=== PATIENT | male | born 1975 | race Two or more races ===

== ENCOUNTER 2025-02-25 03:51 | Inpatient (IN) | payer MEDICAID, OTHER ==
[~2025-02-25] VITALS: Ht 170.2 cm; Wt 97.0 kg
--- NOTE | 2025-02-25 04:22 | ED.PDOC ---
History of Present Illness HPI Comments 49 y/o obese, Estonian speaking M presents daughter with c/c of diffused abdominal pain. Patient endorses on sudden onset of worsening pain after eating pork at 0000, this morning. No modifying factors. No endorsed recent prior ailments, sick contact, travel, injuries, or pertinent medical, surgical, or family history. Social history of occasional alcohol use. Denial of urinary symptoms, nausea, vomiting, diarrhea, constipation, or further associated symptoms. Chief Complaint: Abdominal Pain Time Seen by MD: 04:05 Reviewed Notes: Nurses Notes, Medications, Allergies Information Source: Patient Mode of Arrival: Ambulatory Severity: Moderate Timing: Hours Duration: Since onset Prehospital treatment: None Past Medical History PAST MEDICAL HISTORY: Denies Surgical History: Denies all surgeries Family History Family History: Reviewed,noncontributory to illness, No family hx of Cancer, No family hx of DM, No family hx of Heart kayy, No family hx of HTN, No family hx ofKidney kayy, No family hx of Liver kayy, No family hx of Lung kayy, No family hx of Stroke Social History Smoker: Non-Smoker Alcohol: Occasionally Drugs: Denies Drug Use Lives In: Home All Other Systems: Reviewed and Negative (Comprehensive systems review obtained and negative except for what is stated in the HPI.) Physical Exam General Appearance: Moderate Distress HEENT: Normal ENT Inspection, Pharynx Normal, TMs Normal Neck: Full Range of Motion, Non-Tender, Normal, Normal Inspection Respiratory: Chest Non-Tender, Lungs Clear, No Accessory Muscle Use, No Respiratory Distress, Normal Breath Sounds Cardiovascular: No Edema, No JVD, No Murmur, No Gallop, Normal Peripheral Pulses, Regular Rate/Rhythm Breast Exam: Deferred Gastrointestinal: Diffuse Genitalia: Deferred Pelvic: Deferred Rectal: Deferred Extremities: No calf tenderness, Normal capillary refill, Normal inspection, Normal range of motion, Non-tender, No pedal edema Musculoskeletal : Apperance: Normal Neurologic: Alert, fish roe processor II-XII nml as Tested, No Motor Deficits, Normal Affect, Normal Mood, No Sensory Deficits Cerebellar Function: Normal Reflexes: Normal Skin: Dry, Normal Color, Warm Peripheral Pulses: 3+ Radial (R), 3+ Radial (L) Lymphatic: No Adenopathy Was a procedure done? Was a procedure done?: No Differential Dx Considerations may include: Gastritis, gastroenteritis, GERD, cholelithiasis, cholecystitis, appendicitis, diverticulitis, splenic infarct, constipation, spoiled food, viral syndrome, among others X-Ray, Labs, Meds, VS Vital Signs Date Time Temp Pulse Resp B/P (MAP) Pulse Ox O2 Delivery O2 Flow Rate FiO2 02/25/25 03:53 97.9 94 22 157/106 97 97.9 Lab Test 02/25/25 04:19 Range/Units White Blood Count 8.6 4.4-10.8 10^3/uL Red Blood Count 5.08 4.5-5.90 10^6/uL Hemoglobin 15.4 13.5-17.5 g/dL Hematocrit 44.3 41.0-53.0 % Mean Corpuscular Volume 87.2 80.0-100.0 fL Mean Corpuscular Hemoglobin 30.3 28.0-32.0 pg Mean Corpuscular Hemoglobin Concent 34.8 32.0-36.0 g/dL Red Cell Distribution Width 12.9 11.8-14.3 % Platelet Count 118 L 140-450 10^3/uL Mean Platelet Volume 9.2 6.9-10.8 fL Neutrophils (%) (Auto) 71.8 37.0-80.0 % Lymphocytes (%) (Auto) 21.7 10.0-50.0 % Monocytes (%) (Auto) 5.6 0.0-12.0 % Eosinophils (%) (Auto) 0.4 0.0-7.0 % Basophils (%) (Auto) 0.5 0.0-2.0 % Neutrophils # (Auto) 6.2 1.6-8.6 10 ^3/uL Lymphocytes # (Auto) 1.9 0.4-5.4 10 ^3/uL Monocytes # (Auto) 0.5 0-1.3 10 ^3/uL Eosinophils # (Auto) 0 0-0.8 10 ^3/uL Basophils # (Auto) 0 0-0.2 10 ^3/uL Nucleated Red Blood Cells 0.1 % Sodium Level 141 136-145 mmol/L Potassium Level 3.7 3.5-5.1 mmol/L Chloride Level 107 98-107 mmol/L Carbon Dioxide Level 22 20-31 mmol/L Anion Gap 12 5-15 Blood Urea Nitrogen Pending Creatinine Pending Glomerular Filtration Rate Calc Pending BUN/Creatinine Ratio Pending Serum Glucose Pending Calcium Level 8.9 8.7-10.4 mg/dL Patient alert. Came in because of abdominal pain. Blood pressure elevated. Saturation pristine on room air. Heart rate within normal limits. Symptoms started after having meat. Possible colitis. Establish intravenous access. Was given fluids. Was given morphine. Was given Zofran. Monitoring blood pressure. Explained to the patient. Time of 1ST Reevaluation: 04:35 Reevaluation 1ST: Unchanged Patient Education/Counseling: Diagnosis, Treatment, Need For Follow Up Family Education/Counseling: No Family Present SEPSIS Sepsis Screen Date sepsis recognized/suspect: Feb 25, 2025 Time Sepsis recognized/suspect: 356 Recent Procedure: No On Antibiotic Therapy: No Respiratory Rate >20: Yes Heart Rate >90: Yes Temp<36 C (96.8 F) or >38.3 C: No SBP <90 or MAP <65 mmHG: No New Acute Mental Status Change: No Is the patient on CPAP, BIPAP,: No Physician Orders Sodium Chloride 0.9% (02/25/25 04:15) Ct Ab Pel Wo Con-No Oral Or Iv (02/25/25 04:11) Basic Metabolic Panel (02/25/25 04:11) Vital Signs Date Time Temp Pulse Resp B/P (MAP) Pulse Ox O2 Delivery O2 Flow Rate FiO2 02/25/25 03:53 97.9 94 22 157/106 97 97.9 Laboratory Tests Test 02/25/25 04:19 White Blood Count 8.6 10^3/uL (4.4-10.8) Departure 1 Departure Time of Disposition: 04:27 Impression: Primary Impression: Acute abdominal pain Additional Impression: Hypertensive urgency Disposition: 09 ADMITTED INPATIENT Admit to: Med Surg Condition: Guarded Critical Care Note Critical Care Time?: Yes (90 min-critical care time only) Stability Stability form required: No Heart Score Heart Score: Heart Score Response (Comments) Value History N/A 0 EKG N/A 0 Age N/A 0 Risk Factors N/A 0 Troponin N/A 0 Total 0 I personally scribed for KATERINA FLORES MD ([email or web address]) on 02/25/25 at 04:21. Electronically submitted by Salty Anaya ([email or web address]). KATERINA FLORES MD Feb 25, 2025 04:21
[2025-02-25 04:32] LABS: Hematocrit 44.3 % (41.0-53.0); Hemoglobin 15.4 g/dL (13.5-17.5); Mean Corpuscular Hemoglobin 30.3 pg (28.0-32.0); Mean Corpuscular Volume 87.2 fL (80.0-100.0); Nucleated Red Blood Cells % 0.1 %
[2025-02-25 04:49] LABS: Potassium 3.7 mmol/L (3.5-5.1); Sodium 141 mmol/L (136-145)
[2025-02-25 04:50] LABS: Anion Gap 12 (5-15); Calcium 8.9 mg/dL (8.7-10.4); Carbon Dioxide 22 mmol/L (20-31)
[2025-02-25 04:51] LABS: Chloride 107 mmol/L (98-107)
[2025-02-25 04:55] LABS: BUN/Creatinine Ratio 12.7 (10.0-20.0); Blood Urea Nitrogen 10 mg/dL (9-23)
[2025-02-25 05:06] LABS: Glucose 194 mg/dL (74-106)
[2025-02-25] MEDS: SODIUM CHLORIDE 0.9% 1,000 ML IVB ONE (05:31)
[2025-02-25] MEDS: MORPHINE SULFATE 4 MG/ML SYR/VIAL IV ONE (05:32)
[2025-02-25] MEDS: ONDANSETRON HCL 4 MG/2 ML VIAL IV ONE (05:32)
--- NOTE | 2025-02-25 06:12 | DVH ---
Exam: CT CT AB PEL WO CON-NO ORAL OR IV History: colitis Comparison Study: None TECHNIQUE: Multidetector CT of the abdomen and pelvis was performed from lung bases to pubic symphysi s. Imaging was performed without IV contrast. Axial, coronal and sagittal multiplanar reformats were obtained from the axial data set by the technologist. Radiation optimization: All CT scans at this facility use at least one of these dose optimization benton hniques: automated exposure control mA and/or kV adjustment per patient size (includes targeted exam s where dose is matched to clinical indication) or iterative reconstruction. Radiation Dose Information: CT Dose: CTDI volume is 20.39 mGy. Dose-length product is 3.92 mGy*cm FINDINGS: Evaluation of solid organs is limited due to lack of intravenous contrast use. Imaged portions of the lung bases demonstrate patchy atelectasis left lung base. Diffuse hepatic steatosis with sparing along the gallbladder fossa. Gallbladder, spleen, pancreas, a nd adrenal glands appear unremarkable. 2 mm calculus in the mid left ureter with mild left hydronephr osis. No additional renal or ureteral calculi. No evidence of bowel obstruction or focal bowel wall thickening. Appendix appears normal. No free fl uid, free air or adenopathy. No suspicious osseous lesion. IMPRESSION: 1. 1.2 mm calculus in the mid left ureter with mild left hydronephrosis. 2. Hepatic steatosis.
[2025-02-25] MEDS ORDERED: NITROGLYCERIN 0.4 MG SL TAB SL PRN (09:00)
[2025-02-25] MEDS ORDERED: ONDANSETRON HCL 4 MG/2 ML VIAL IV PRN (09:00)
--- NOTE | 2025-02-25 09:13 | DVHHPRES ---
History of Present Illness Resident Creating Document: ANDRES BLOOD RESIDENT History of Present Illness Mr Donato is a 49 years old male with no significant past medical history except intermittent HTN presented to the ED with the chief complaints of severe left-sided abdominal pain . According to the patient pain started at 1:00 a.m. and worsened by 3:00 a.m. described as feeling stomach is going to burst, no aggravating/ relieving factors, nonradiating 9/10 intensity. Patient reported that he had consumed a poor cut approximately 6 alcoholic showed the previous night. Patient denies nausea, vomiting, diarrhea, fever, difficulty breathing and other associated symptoms. PMH: Intermittent HTN, alcohol use PSH: Denies Family history: Cancer in sister Social history: Lives at home. 6-7 beers of alcohol every week, denies smoking, marijuana and other illicit drug abuse Allergies: No known allergies Home medications: None Review of Systems Review of Systems Patient seen and examined at the bedside in ED. Patient currently reporting having abdominal pain mostly in left side, with the no nausea, vomiting diarrhea. Allergies: Coded Allergies: NO KNOWN ALLERGIES (Unverified , 02/25/25) Medications Current Medications Medications Dose Ordered Sig/Yonis Route Start Time Stop Time Status Last Admin Dose Admin Sodium Chloride 10 ml Q8HR IV 02/25/25 14:00 UNV Sodium Chloride 1,000 ml @ 120 mls/hr Q8H20M IV 02/25/25 09:00 UNV Ondansetron HCl 4 mg Q4HP PRN IV 02/25/25 09:00 UNV Enoxaparin Sodium 40 mg DAILY SC 02/25/25 10:00 UNV Acetaminophen 650 mg Q6HP PRN PO 02/25/25 09:00 UNV Morphine Sulfate 2 mg Q4HPRN PRN IV 02/25/25 09:00 UNV Nitroglycerin 0.4 mg Q5MINP PRN SL 02/25/25 09:00 UNV Morphine Sulfate 2 mg Q30M PRN IV 02/25/25 09:00 UNV Tamsulosin HCl 0.4 mg QPM PO 02/25/25 18:00 UNV Thiamine HCl 100 mg DAILY PO 02/25/25 10:00 UNV Folic Acid 1 mg DAILY PO 02/25/25 10:00 UNV Exam Vital Signs Vital Signs Date Time Temp Pulse Resp B/P (MAP) Pulse Ox O2 Delivery O2 Flow Rate FiO2 02/25/25 08:06 71 18 139/91 (107) 98 02/25/25 08:06 Room Air 02/25/25 05:25 98.6 98.6 Exam Pt is lying on bed General Appearance: Alert, Oriented X3, Cooperative, Not in acute distress HEENT: Atraumatic, Mucous membranes moist/pink Respiratory: Clear to auscultation, Normal air movement, No added sounds Cardiovascular: Regular rate, Normal S1, Normal S2, No murmurs Abdominal: Active bowel sounds, Soft, no distention, left flank/ lower quadrant tenderness Extremities: No edema, Normal pulses, No tenderness/swelling Skin: No Significant rash, except past surgical scars Neuro: Normal speech, sensorimotor deficits none Psych/Mental Status: Mental status NL, Mood NL Nurse was there as director of quality control during examination Labs/Xrays Labs Test 02/25/25 04:19 Range/Units White Blood Count 8.6 4.4-10.8 10^3/uL Red Blood Count 5.08 4.5-5.90 10^6/uL Hemoglobin 15.4 13.5-17.5 g/dL Hematocrit 44.3 41.0-53.0 % Mean Corpuscular Volume 87.2 80.0-100.0 fL Mean Corpuscular Hemoglobin 30.3 28.0-32.0 pg Mean Corpuscular Hemoglobin Concent 34.8 32.0-36.0 g/dL Red Cell Distribution Width 12.9 11.8-14.3 % Platelet Count 118 L 140-450 10^3/uL Mean Platelet Volume 9.2 6.9-10.8 fL Neutrophils (%) (Auto) 71.8 37.0-80.0 % Lymphocytes (%) (Auto) 21.7 10.0-50.0 % Monocytes (%) (Auto) 5.6 0.0-12.0 % Eosinophils (%) (Auto) 0.4 0.0-7.0 % Basophils (%) (Auto) 0.5 0.0-2.0 % Neutrophils # (Auto) 6.2 1.6-8.6 10 ^3/uL Lymphocytes # (Auto) 1.9 0.4-5.4 10 ^3/uL Monocytes # (Auto) 0.5 0-1.3 10 ^3/uL Eosinophils # (Auto) 0 0-0.8 10 ^3/uL Basophils # (Auto) 0 0-0.2 10 ^3/uL Nucleated Red Blood Cells 0.1 % Sodium Level 141 136-145 mmol/L Potassium Level 3.7 3.5-5.1 mmol/L Chloride Level 107 98-107 mmol/L Carbon Dioxide Level 22 20-31 mmol/L Anion Gap 12 5-15 Blood Urea Nitrogen 10 9-23 mg/dL Creatinine 0.79 0.700-1.30 mg/dL Glomerular Filtration Rate Calc 110 >90 mL/min BUN/Creatinine Ratio 12.7 10.0-20.0 Serum Glucose 194 H 74-106 mg/dL Calcium Level 8.9 8.7-10.4 mg/dL SEPSIS Sepsis Screen Date sepsis recognized/suspect: Feb 25, 2025 Time Sepsis recognized/suspect: 356 Recent Procedure: No On Antibiotic Therapy: No Respiratory Rate >20: Yes Heart Rate >90: Yes Temp<36 C (96.8 F) or >38.3 C: No SBP <90 or MAP <65 mmHG: No New Acute Mental Status Change: No Is the patient on CPAP, BIPAP,: No Physician Orders Ct Ab Pel Wo Con-No Oral Or Iv (02/25/25 04:11) Admit (02/25/25 08:53) Allergies (02/25/25 08:53) Code Status (02/25/25 08:53) Sodium Chloride Lock (Saline Lock Ns) (02/25/25 14:00) Sodium Chloride 0.9% (02/25/25 09:00) Ondansetron Hcl (Zofran) (02/25/25 09:00) Enoxaparin Sodium (Lovenox) (02/25/25 10:00) Complete Blood Count (02/26/25 04:00) Comprehensive Metabolic Panel (02/26/25 04:00) Condition: Fair (02/25/25 08:53) Acetaminophen Tablet (Tylenol Tablet) (02/25/25 09:00) Clear Liq Diet (02/25/25 Breakfast) Morphine Sulfate Injection (02/25/25 09:00) Nitroglycerin Sublingual (Ntrostat Subli (02/25/25 09:00) Morphine Sulfate Injection (02/25/25 09:00) Oxygen By Nasal Cannula (02/25/25 08:53) Stat Ekg For Chest Pain (02/25/25 08:53) Notify Of Changes From Base (02/25/25 08:53) Podiatric Medicine Doctor For 24 Hours (02/25/25 08:53) Emergency Dysrhythmia Protocol (02/25/25 08:53) Rhythm Strips Once Every Shift (02/25/25 08:53) B-Type Natriuretic Peptide (02/25/25 08:53) Lipase (02/25/25 08:53) Hepatic Panel (02/25/25 08:53) Urinalysis (02/25/25 08:53) Drug Screen (02/25/25 08:53) Blood Alcohol (02/25/25 08:53) Covid19 Antigen Stacy (02/25/25 08:53) Magnesium (02/25/25 08:53) Rapid Influenza A&B (02/25/25 08:53) Strain All Urine For Stones (02/25/25 08:53) * Urology Consult (02/25/25 08:53) Tamsulosin Hydrochloride (Flomax) (02/25/25 18:00) Thiamine Tab (02/25/25 10:00) Folic Acid Tablet (02/25/25 10:00) Amlodipine Tablet (Norvasc Tablet) (02/25/25 10:00) Pantoprazole Tablet (Protonix Tablet) (02/26/25 06:00) Pantoprazole Tablet (Protonix Tablet) (02/25/25 09:15) Hemoglobin A1c (02/25/25 09:11) Vitamin B12 (02/25/25 09:11) Vital Signs Date Time Temp Pulse Resp B/P (MAP) Pulse Ox O2 Delivery O2 Flow Rate FiO2 02/25/25 08:06 71 18 139/91 (107) 98 02/25/25 08:06 71 18 98 Room Air 02/25/25 05:32 88 18 157/103 02/25/25 05:25 98.6 88 18 157/103 (121) 96 98.6 02/25/25 03:53 97.9 94 22 157/106 97 97.9 Laboratory Tests Test 02/25/25 04:19 White Blood Count 8.6 10^3/uL (4.4-10.8) Medications Medications Dose Ordered Sig/Yonis Route Start Time Stop Time Status Last Admin Dose Admin Morphine Sulfate 4 mg ONCE ONCE IV 02/25/25 04:15 02/25/25 04:16 DC 02/25/25 05:32 4 MG Ondansetron HCl 4 mg ONCE ONCE IV 02/25/25 04:15 02/25/25 04:16 DC 02/25/25 05:32 4 MG Sodium Chloride 1,000 ml @ 1,000 mls/hr Q1H ONCE IVB 02/25/25 04:15 02/25/25 05:14 DC 02/25/25 05:31 1,000 MLS/HR Assessment/Plan Assessment/Plan # Acute left ureterolithiasis Likely obstructive # Mild left hydronephrosis - CT abdominal pelvis showed 2 mm stone in left ureter with hydronephrosis - IVF - pain and symptomatic management - tamsulosin - urology consult # R/o Gastroenteritis likely viral - supportive management - IVF # Hypertensive crisis - continuously monitor blood pressure - started on amlodipine 5 mg # Alcohol use disorder - counseled regarding cessation for more than 17 minutes - monitor for withdrawal signs and symptoms - thiamine and folic acid p.o. GI PPX: Protonix VTE ppx: Lovenox Diet: Clear liquids Goals of care addressed with the patient for more than 27 minutes: Full code mikey wagners Case discussed with Dr. Roper, patient and nurse Plan discussed with: Patient My Orders Orders - ANDRES BLOOD RESIDENT Procedure Category Date Status Time Admit ADMIT 02/25/25 Transmitted 08:53 Allergies DIMITRY 02/25/25 In Process 08:53 Code Status CODE 02/25/25 Transmitted 08:53 Sodium Chloride Lock PHA 02/25/25 Logged (Saline Lock Ns) 14:00 Sodium Chloride 0.9% PHA 02/25/25 Logged 09:00 Ondansetron Hcl PHA 02/25/25 Logged (Zofran) 09:00 Enoxaparin Sodium PHA 02/25/25 Logged (Lovenox) 10:00 Complete Blood Count LAB 02/26/25 Verified 04:00 Comprehensive LAB 02/26/25 Verified Metabolic Panel 04:00 Condition: Fair DIMITRY 02/25/25 In Process 08:53 Acetaminophen Tablet PHA 02/25/25 Logged (Tylenol Tablet) 09:00 Clear Liq Diet DIET 02/25/25 Transmitted Breakfast Morphine Sulfate PHA 02/25/25 Logged Injection 09:00 Nitroglycerin PHA 02/25/25 Logged Sublingual (Ntrostat 09:00 Morphine Sulfate PHA 02/25/25 Logged Injection 09:00 Oxygen By Nasal RT 02/25/25 Transmitted Cannula 08:53 Stat Ekg For Chest [facility] 02/25/25 In Process Pain 08:53 Notify Of Changes [facility] 02/25/25 In Process From Base 08:53 Podiatric Medicine Doctor For [facility] 02/25/25 In Process 24 Hours 08:53 Emergency Dysrhythmia [facility] 02/25/25 In Process Protocol 08:53 Rhythm Strips Once [facility] 02/25/25 In Process Every Shift 08:53 B-Type Natriuretic LAB 02/25/25 Logged Peptide 08:53 Lipase LAB 02/25/25 Logged 08:53 Hepatic Panel LAB 02/25/25 Logged 08:53 Urinalysis LAB 02/25/25 Logged 08:53 Drug Screen LAB 02/25/25 Logged 08:53 Blood Alcohol LAB 02/25/25 Logged 08:53 Covid19 Antigen Stacy LAB 02/25/25 Logged 08:53 Magnesium LAB 02/25/25 Logged 08:53 Rapid Influenza A&B LAB 02/25/25 Logged 08:53 Strain All Urine For [facility] 02/25/25 In Process Stones 08:53 * Urology Consult CONS 02/25/25 Transmitted 08:53 Tamsulosin PHA 02/25/25 Logged Hydrochloride (Flomax) 18:00 Thiamine Tab PHA 02/25/25 Logged 10:00 Folic Acid Tablet PHA 02/25/25 Logged 10:00 Amlodipine Tablet [facility] 02/25/25 Transmitted (Norvasc Tablet) 10:00 Pantoprazole Tablet PHA 02/26/25 Transmitted (Protonix Tablet) 06:00 Pantoprazole Tablet PHA 02/25/25 Transmitted (Protonix Tablet) 09:15 Hemoglobin A1c LAB 02/25/25 Verified 09:11 Vitamin B12 LAB 02/25/25 Verified 09:11 ANDRES BLOOD RESIDENT Feb 25, 2025 09:13
[2025-02-25] MEDS ORDERED: MORPHINE SULFATE 4 MG/ML SYR/VIAL IV PRN ×2 (09:30)
[2025-02-25] MEDS: SODIUM CHLORIDE 0.9% 1,000 ML IV SCH (09:44)
[2025-02-25] MEDS: PANTOPRAZOLE 40 MG TAB PO ONE (09:44)
[2025-02-25 10:29] LABS: Albumin 4.5 g/dL (3.2-4.8); Alkaline Phosphatase 70 U/L (46-116); Bilirubin, Direct 0.1 mg/dL (<0.3); Bilirubin, Total 0.4 mg/dL (0.2-1.0); Magnesium 2.1 mg/dL (1.6-2.6); Total Protein 7.3 g/dL (5.7-8.2)
[2025-02-25 10:30] LABS: Alanine Aminotransferase 67 U/L (7-40)
[2025-02-25 10:43] LABS: Lipase 52 U/L (12-53)
[2025-02-25] MEDS: THIAMINE HCL 100 MG TAB PO SCH (10:54)
[2025-02-25] MEDS: FOLIC ACID 1 MG TAB PO SCH (10:54)
[2025-02-25] MEDS: ENOXAPARIN SOD 40 MG/0.4 ML SYRINGE SC SCH (11:01)
[2025-02-25 11:03] LABS: Opiate Scree,Urine Neg (NEGATIVE)
[2025-02-25 11:05] LABS: Amphetamine Screen, Urine Neg (NEGATIVE); Barbiturate Scree,Urine Neg (NEGATIVE); Benzodiazephine Screen, Urine Neg (NEGATIVE); Cannabinoid Screen, Urine Neg (NEGATIVE); Cocaine Screen, Urine Neg (NEGATIVE); Phencyclidine Screen, Urine Neg (NEGATIVE)
[2025-02-25 11:06] LABS: Urine Protein, UAD Negative (Negative)
[2025-02-25 11:07] LABS: COVID19 ANTIGEN SOFIA FIA NEGATIVE (NEGATIVE)
[2025-02-25 11:52] VITALS: BP 133/78; PULSE 66; RESP 18; TEMP 97.8; O2SAT 99
[2025-02-25] MEDS: SODIUM CHLOR 0.9% PF (SALINE LOCK) 10ML VIAL/SYR IV SCH (14:41)
[2025-02-25 17:45] VITALS: BP 136/89; PULSE 60; RESP 16; TEMP 97.3; O2SAT 98
[2025-02-25] MEDS: TAMSULOSIN HYDROCHLORIDE 0.4 MG CAP PO SCH (18:14)
[2025-02-25 20:47] VITALS: BP 144/90; PULSE 60; RESP 20; TEMP 98.1; O2SAT 98
[2025-02-26] VITALS (8 sets, daily range): BP systolic 129–153; BP diastolic 88–92; PULSE 57–76; RESP 16–20; TEMP 97.5–98.8; O2SAT 95–98
[2025-02-26] MEDS: PANTOPRAZOLE 40 MG TAB PO SCH (05:40)
[2025-02-26 07:08] LABS: Hematocrit 42.5 % (41.0-53.0); Hemoglobin 14.7 g/dL (13.5-17.5); Mean Corpuscular Hemoglobin 29.9 pg (28.0-32.0); Mean Corpuscular Volume 86.2 fL (80.0-100.0); Nucleated Red Blood Cells % 0.2 %
[2025-02-26 07:37] LABS: Alkaline Phosphatase 60 U/L (46-116); Anion Gap 12 (5-15); BUN/Creatinine Ratio 7.9 (10.0-20.0); Carbon Dioxide 24 mmol/L (20-31); Potassium 3.6 mmol/L (3.5-5.1); Sodium 144 mmol/L (136-145); Total Protein 6.4 g/dL (5.7-8.2)
[2025-02-26 07:38] LABS: Albumin 3.9 g/dL (3.2-4.8); Bilirubin, Total 0.6 mg/dL (0.2-1.0)
[2025-02-26 07:44] LABS: Alanine Aminotransferase 59 U/L (7-40); Blood Urea Nitrogen 6 mg/dL (9-23); Calcium 8.5 mg/dL (8.7-10.4); Chloride 108 mmol/L (98-107); Glucose 115 mg/dL (74-106)
[2025-02-26 13:06] LABS: Hepatitis B Surface Antigen Negative (Negative); Hepatitis C Antibody Negative (Negative)
--- NOTE | 2025-02-26 13:21 | DVHINCON2 ---
Date of service: Feb 26, 2025 Referring Physician HOSPITALIST Reason for Consultation PATIENT: AD BARNES ACCT: [id number] UNIT: [id number] : 1975 LOC: ER ROOM / BED: / AGE / SEX: 49 / M ADM STATUS: REG ER SERVICE 0411 ORDERING PHYSICIAN: KATERINA FLORES MD PROCEDURE(s): ABPL - CT AB PEL WO CON-NO ORAL OR IV REASON: colitis ORDER NUMBER(s): [id number], ACCESSION NUMBER(s): [id number] Exam: CT CT AB PEL WO CON-NO ORAL OR IV History: colitis Comparison Study: None TECHNIQUE: Multidetector CT of the abdomen and pelvis was performed from lung bases to pubic symphysis. Imaging was performed without IV contrast. Axial, coronal and sagittal multiplanar reformats were obtained from the axial data set by the technologist. Radiation optimization: All CT scans at this facility use at least one of these dose optimization techniques: automated exposure control mA and/or kV adjustment per patient size (includes targeted exams where dose is matched to clinical indication) or iterative reconstruction. Radiation Dose Information: CT Dose: CTDI volume is 20.39 mGy. Dose-length product is 3.92 mGy*cm FINDINGS: Evaluation of solid organs is limited due to lack of intravenous contrast use. Imaged portions of the lung bases demonstrate patchy atelectasis left lung base. Diffuse hepatic steatosis with sparing along the gallbladder fossa. Gallbladder, spleen, pancreas, and adrenal glands appear unremarkable. 2 mm calculus in the mid left ureter with mild left hydronephrosis. No additional renal or ureteral calculi. No evidence of bowel obstruction or focal bowel wall thickening. Appendix appears normal. No free fluid, free air or adenopathy. No suspicious osseous lesion. IMPRESSION: 1. 1.2 mm calculus in the mid left ureter with mild left hydronephrosis. 2. Hepatic steatosis. ATED BY: ELISABET BETH MD DICTATED DATE/TIME: 02/25/25610 SIGNED BY: ELISABET BETH MD SIGNED DATE/TIME: 02/25/25610 CC: History of Present Illness 49 y/o obese, Mongolian speaking M presents daughter with c/c of diffused abdominal pain. Patient endorses on sudden onset of worsening pain. No modifying factors. No endorsed recent prior ailments, sick contact, travel, injuries, or pertinent medical, surgical, or family history. Social history of occasional alcohol use. Denial of urinary symptoms, nausea, vomiting, diarrhea, constipation, or further associated symptoms. Chief Complaint: Abdominal Pain Reviewed Notes: Nurses Notes, Medications, Allergies Information Source: Patient Mode of Arrival: Ambulatory Severity: Moderate Timing: Hours Duration: Since onset Prehospital treatment: None Past Medical History Denies Family History: Hypertension G8 MOTHER Allergies: Coded Allergies: Pork-derived Products (Verified Allergy, Unknown, 02/25/25) Current Medications Current Medications Medications (Trade) Dose Ordered Sig/Yonis Route PRN Reason Start Time Stop Time Status Last Admin Sodium Chloride (Saline Lock Ns) 10 ml Q8HR IV 02/25/25 14:00 02/26/25 12:49 Tamsulosin HCl (Flomax) 0.4 mg QPM PO 02/25/25 18:00 02/25/25 18:14 Pantoprazole Sodium (Protonix Tablet) 40 mg DAILY@0600 PO 02/26/25 06:00 02/26/25 05:40 Review of Systems All Other Systems: Reviewed and Negative (Comprehensive systems review obtained and negative except for what is stated in the HPI.) Vital Signs Vital Signs Date Time Temp Pulse Resp B/P (MAP) Pulse Ox O2 Delivery O2 Flow Rate FiO2 02/26/25 12:51 97.9 57 16 129/90 (103) 95 97.9 02/26/25 08:00 Room Air* 0 21 Labs/Diagnostic Data Labs Test 02/26/25 04:32 02/25/25 09:42 02/25/25 09:21 02/25/25 09:13 Range/Units White Blood Count 7.4 4.4-10.8 10^3/uL Red Blood Count 4.93 4.5-5.90 10^6/uL Hemoglobin 14.7 13.5-17.5 g/dL Hematocrit 42.5 41.0-53.0 % Mean Corpuscular Volume 86.2 80.0-100.0 fL Mean Corpuscular Hemoglobin 29.9 28.0-32.0 pg Mean Corpuscular Hemoglobin Concent 34.7 32.0-36.0 g/dL Red Cell Distribution Width 13.0 11.8-14.3 % Platelet Count 129 L 140-450 10^3/uL Mean Platelet Volume 10.1 6.9-10.8 fL Neutrophils (%) (Auto) 69.8 37.0-80.0 % Lymphocytes (%) (Auto) 21.8 10.0-50.0 % Monocytes (%) (Auto) 7.7 0.0-12.0 % Eosinophils (%) (Auto) 0.3 0.0-7.0 % Basophils (%) (Auto) 0.4 0.0-2.0 % Neutrophils # (Auto) 5.2 1.6-8.6 10 ^3/uL Lymphocytes # (Auto) 1.6 0.4-5.4 10 ^3/uL Monocytes # (Auto) 0.6 0-1.3 10 ^3/uL Eosinophils # (Auto) 0 0-0.8 10 ^3/uL Basophils # (Auto) 0 0-0.2 10 ^3/uL Nucleated Red Blood Cells 0.2 % Sodium Level 144 136-145 mmol/L Potassium Level 3.6 3.5-5.1 mmol/L Chloride Level 108 H 98-107 mmol/L Carbon Dioxide Level 24 20-31 mmol/L Anion Gap 12 5-15 Blood Urea Nitrogen 6 L 9-23 mg/dL Creatinine 0.76 0.700-1.30 mg/dL Glomerular Filtration Rate Calc 112 >90 mL/min BUN/Creatinine Ratio 7.9 L 10.0-20.0 Serum Glucose 115 H 74-106 mg/dL Calcium Level 8.5 L 8.7-10.4 mg/dL Total Bilirubin 0.6 0.2-1.0 mg/dL Aspartate Amino Transferase (AST) 31 13-40 U/L Alanine Aminotransferase (ALT) 59 H 7-40 U/L Alkaline Phosphatase 60 46-116 U/L Total Protein 6.4 5.7-8.2 g/dL Albumin 3.9 3.2-4.8 g/dL Magnesium Level 2.1 1.6-2.6 mg/dL Direct Bilirubin 0.1 <0.3 mg/dL Lipase 52 12-53 U/L Plasma/Serum Blood Alcohol < 3.0 <10 mg/dL Urine Color Light-yellow Yellow Urine Clarity Clear Clear Urine pH 5.5 5.0-9.0 Urine Specific [place] 1.017 1.001-1.035 Urine Protein Negative Negative Urine Ketones Negative Negative Urine Blood 1+ H Negative /uL Urine Nitrite Negative Negative Urine Bilirubin Negative Negative Urine Urobilinogen Normal Negative mg/dL Urine Leukocyte Esterase Negative Negative /uL Urine RBC 2 0 - 3 /hpf Urine Microscopic WBC 2 0-3 /HPF Urine Squamous Epithelial Cells None seen <5 /hpf Urine Bacteria None seen None Seen /hpf Urine Mucus Few None Seen Urine Glucose Normal Normal mg/dL Urine Opiates Screen Neg NEGATIVE Urine Fentanyl Screen Neg NEGATIVE Urine Barbiturates Screen Neg NEGATIVE Urine Phencyclidine Screen Neg NEGATIVE Urine Amphetamines Screen Neg NEGATIVE Urine Benzodiazepines Screen Neg NEGATIVE Urine Cocaine Screen Neg NEGATIVE Urine Cannabinoids Screen Neg NEGATIVE Influenza Type A Antigen Negative Negative Influenza Type B Antigen Negative Negative SARS-CoV-2 Antigen (Rapid) Negative NEGATIVE Test 02/25/25 04:19 Range/Units Hemoglobin A1c 5.8 H <5.7 % A1C B-Type Natriuretic Peptide 4.49 0-100 pg/mL Vitamin B12 Level 538 211-911 pg/mL Hepatitis B Surface Antigen Negative Negative Hepatitis C Antibody Negative Negative Assessment 1.2 MM URETERAL CALCULUS WITH MILD HYDRONEPHROSIS MICROSCOPIC HEMATURIA Plan/Recommendation EXPULSIVE MEASURES AND PAIN CONTROL. THERE IS NO ROLE FOR UROLOGICAL INTERVENTION AT THIS TIME Plan discussed with: Patient, Other JOSE LOCO MD Feb 26, 2025 13:21
--- NOTE | 2025-02-26 20:18 | DVHPNRES ---
Progress Note Date Seen: Feb 26, 2025 Resident Creating Document: GABRIELA SAMUELS RESIDENT Medical Necessity Reason Pt with a Central, PICC or Fol: No Subjective Review of Systems pt seen and examined at bedside. mentioned significant improvement in the symptoms. mentioned that he passed 2 small stones no other active complains no signs of alcoholic withdrawal Objective vital signs Vital Sign Date Time Temp Pulse Resp B/P (MAP) Pulse Ox O2 Delivery O2 Flow Rate FiO2 02/26/25 16:49 97.9 63 16 142/88 (106) 98 97.9 02/26/25 08:00 Room Air* 0 21 Total Intake and Output 02/25/25 02/25/25 02/26/25 14:59 22:59 06:59 Intake Total 400 ml 600 ml Balance 400 ml 600 ml medications Current Medications Medications Dose Ordered Sig/Yonis Route Start Time Stop Time Status Last Admin Dose Admin Sodium Chloride 10 ml Q8HR IV 02/25/25 14:00 02/26/25 12:49 10 ML Sodium Chloride 1,000 ml @ 120 mls/hr Q8H20M IV 02/25/25 09:00 02/26/25 17:35 120 MLS/HR Ondansetron HCl 4 mg Q4HP PRN IV 02/25/25 09:00 Enoxaparin Sodium 40 mg DAILY SC 02/25/25 10:00 Hold 02/25/25 11:01 40 MG Acetaminophen 650 mg Q6HP PRN PO 02/25/25 09:00 Morphine Sulfate 2 mg Q4HPRN PRN IV 02/25/25 09:30 Nitroglycerin 0.4 mg Q5MINP PRN SL 02/25/25 09:00 Morphine Sulfate 2 mg Q30M PRN IV 02/25/25 09:30 Tamsulosin HCl 0.4 mg QPM PO 02/25/25 18:00 02/26/25 17:35 0.4 MG Thiamine HCl 100 mg DAILY PO 02/25/25 10:00 02/26/25 10:04 100 MG Folic Acid 1 mg DAILY PO 02/25/25 10:00 02/26/25 10:04 1 MG Amlodipine Besylate 5 mg DAILY PO 02/25/25 10:00 02/26/25 10:05 5 MG Pantoprazole Sodium 40 mg DAILY@0600 PO 02/26/25 06:00 02/26/25 05:40 40 MG Examination Examination General Appearance: Alert, Oriented X3, Cooperative, No acute distress HEENT: EOMI Respiratory: Clear to auscultation, Normal air movement Cardiovascular: Regular rate, Normal S1, Normal S2 Abdominal: Normal bowel sounds Extremities: No cyanosis, No edema, Normal pulses, No tenderness/swelling Skin: No rashes, No breakdown Neuro: Normal gait, Normal speech, Strength at 5/5 X4 ext, Normal tone, Sensation intact, Cranial nerves 3-12 NL, Reflexes 2+ Psych/Mental Status: Mental status NL, Mood NL laboratory and microbiology Laboratory Tests 02/26/25 04:32 Test 02/26/25 04:32 Range/Units Serum Glucose 115 H 74-106 mg/dL Labs and/or images reviewed: Labs reviewed by me, Image(s) reviewed by me Problem List/Assessment/Plan Problem List/Assessment/Plan Assessment/plan # Acute left ureterolithiasis Likely obstructive # Mild left hydronephrosis - CT abdominal pelvis showed 2 mm stone in left ureter with hydronephrosis - pain and symptomatic management - tamsulosin - urology consult, recommended expulsion measures Started on regular diet Discontinued IV fluids # R/o Gastroenteritis likely viral - supportive management - IVF # Hypertension - continuously monitor blood pressure - started on amlodipine 5 mg # Alcohol use disorder - counseled regarding cessation for more than 17 minutes - monitor for withdrawal signs and symptoms - thiamine and folic acid p.o. GI PPX: Protonix VTE ppx: Lovenox Diet: Regular diet Discharge planning within next 24-48 hours Goals of care addressed with the patient for more than minutes: Full code status Case discussed with Dr. Cornell, patient and nurse Plan discussed with: Patient Date of Service: Feb 26, 2025 Billing Provider: AMANUEL CORNELL MD Common Visit Codes: [id number] INP/OBS CARE(HIGH) GABRIELA SAMUELS RESIDENT Feb 26, 2025 20:18 AMANUEL CORNELL MD Feb 28, 2025 17:38
[2025-02-27 01:00] VITALS: BP 146/87; PULSE 70; RESP 20; TEMP 98; O2SAT 96
[2025-02-27] MEDS: ACETAMINOPHEN 325 MG TAB PO PRN (04:18)
[2025-02-27 05:00] VITALS: BP 154/89; PULSE 76; RESP 18; TEMP 97.9; O2SAT 96
[2025-02-27 06:13] LABS: Hematocrit 43.1 % (41.0-53.0); Hemoglobin 15.1 g/dL (13.5-17.5); Mean Corpuscular Hemoglobin 30.1 pg (28.0-32.0); Mean Corpuscular Volume 85.8 fL (80.0-100.0); Nucleated Red Blood Cells % 0.1 %
[2025-02-27 06:17] LABS: Chloride 106 mmol/L (98-107); Potassium 3.7 mmol/L (3.5-5.1); Sodium 144 mmol/L (136-145)
[2025-02-27 06:18] LABS: Anion Gap 9 (5-15); Calcium 9.2 mg/dL (8.7-10.4); Carbon Dioxide 29 mmol/L (20-31)
[2025-02-27 06:24] LABS: BUN/Creatinine Ratio 8.0 (10.0-20.0); Magnesium 2.2 mg/dL (1.6-2.6)
[2025-02-27 06:28] LABS: Blood Urea Nitrogen 7 mg/dL (9-23); Glucose 115 mg/dL (74-106)
--- NOTE | 2025-02-27 07:20 | DVHDSRES ---
Discharge Summary Date of Admission Resident Creating Document: ANDRES BLOOD RESIDENT Feb 25, 2025 at 08:53 Date of Discharge: Feb 27, 2025 Admitting Diagnosis Left renal calculi Labs/Diagnostic Data: Laboratory Results Test 02/27/25 05:11 02/26/25 04:32 02/25/25 09:42 02/25/25 09:21 White Blood Count 6.7 10^3/uL (4.4-10.8) Red Blood Count 5.02 10^6/uL (4.5-5.90) Hemoglobin 15.1 g/dL (13.5-17.5) Hematocrit 43.1 % (41.0-53.0) Mean Corpuscular Volume 85.8 fL (80.0-100.0) Mean Corpuscular Hemoglobin 30.1 pg (28.0-32.0) Mean Corpuscular Hemoglobin Concent 35.1 g/dL (32.0-36.0) Red Cell Distribution Width 13.0 % (11.8-14.3) Platelet Count 134 10^3/uL (140-450) Mean Platelet Volume 9.7 fL (6.9-10.8) Neutrophils (%) (Auto) 69.2 % (37.0-80.0) Lymphocytes (%) (Auto) 22.9 % (10.0-50.0) Monocytes (%) (Auto) 7.3 % (0.0-12.0) Eosinophils (%) (Auto) 0.3 % (0.0-7.0) Basophils (%) (Auto) 0.3 % (0.0-2.0) Neutrophils # (Auto) 4.6 10 ^3/uL (1.6-8.6) Lymphocytes # (Auto) 1.5 10 ^3/uL (0.4-5.4) Monocytes # (Auto) 0.5 10 ^3/uL (0-1.3) Eosinophils # (Auto) 0 10 ^3/uL (0-0.8) Basophils # (Auto) 0 10 ^3/uL (0-0.2) Nucleated Red Blood Cells 0.1 % Sodium Level 144 mmol/L (136-145) Potassium Level 3.7 mmol/L (3.5-5.1) Chloride Level 106 mmol/L (98-107) Carbon Dioxide Level 29 mmol/L (20-31) Anion Gap 9 (5-15) Blood Urea Nitrogen 7 mg/dL (9-23) Creatinine 0.87 mg/dL (0.700-1.30) Glomerular Filtration Rate Calc 107 mL/min (>90) BUN/Creatinine Ratio 8.0 (10.0-20.0) Serum Glucose 115 mg/dL (74-106) Calcium Level 9.2 mg/dL (8.7-10.4) Magnesium Level 2.2 mg/dL (1.6-2.6) Total Bilirubin 0.6 mg/dL (0.2-1.0) Aspartate Amino Transferase (AST) 31 U/L (13-40) Alanine Aminotransferase (ALT) 59 U/L (7-40) Alkaline Phosphatase 60 U/L (46-116) Total Protein 6.4 g/dL (5.7-8.2) Albumin 3.9 g/dL (3.2-4.8) Direct Bilirubin 0.1 mg/dL (<0.3) Lipase 52 U/L (12-53) Plasma/Serum Blood Alcohol < 3.0 mg/dL (<10) Urine Color Light-yellow (Yellow) Urine Clarity Clear (Clear) Urine pH 5.5 (5.0-9.0) Urine Specific [place] 1.017 (1.001-1.035) Urine Protein Negative (Negative) Urine Ketones Negative (Negative) Urine Blood 1+ /uL (Negative) Urine Nitrite Negative (Negative) Urine Bilirubin Negative (Negative) Urine Urobilinogen Normal mg/dL (Negative) Urine Leukocyte Esterase Negative /uL (Negative) Urine RBC 2 /hpf (0 - 3) Urine Microscopic WBC 2 /HPF (0-3) Urine Squamous Epithelial Cells None seen /hpf (<5) Urine Bacteria None seen /hpf (None Seen) Urine Mucus Few (None Seen) Urine Glucose Normal mg/dL (Normal) Urine Opiates Screen Neg (NEGATIVE) Urine Fentanyl Screen Neg (NEGATIVE) Urine Barbiturates Screen Neg (NEGATIVE) Urine Phencyclidine Screen Neg (NEGATIVE) Urine Amphetamines Screen Neg (NEGATIVE) Urine Benzodiazepines Screen Neg (NEGATIVE) Urine Cocaine Screen Neg (NEGATIVE) Urine Cannabinoids Screen Neg (NEGATIVE) Test 02/25/25 09:13 02/25/25 04:19 Influenza Type A Antigen Negative (Negative) Influenza Type B Antigen Negative (Negative) SARS-CoV-2 Antigen (Rapid) Negative (NEGATIVE) Hemoglobin A1c 5.8 % A1C (<5.7) B-Type Natriuretic Peptide 4.49 pg/mL (0-100) Vitamin B12 Level 538 pg/mL (211-911) Hepatitis B Surface Antigen Negative (Negative) Hepatitis C Antibody Negative (Negative) Other Laboratory Tests 02/27/25 05:11 Brief Hx & Hospital Course: Mr Donato is a 49 years old male with no significant past medical history except intermittent HTN presented to the ED with the chief complaints of severe left-sided abdominal pain . According to the patient pain started at 1:00 a.m. and worsened by 3:00 a.m. described as feeling stomach is going to burst, no aggravating/ relieving factors, nonradiating 9/10 intensity. Patient reported that he had consumed a poor cut approximately 6 alcoholic showed the previous night. CT abdomen and pelvis revealed 1.2 mm calculus in the mid left ureter with mild left hydronephrosis. Hepatic steatosis. Patient was treated conservatively. Patient's symptoms resolved. No acute pain today before discharge. Patient was seen by Urology, no acute surgical intervention as per urology at this moment. Recommended for expulsive measure and pain control. Patient is being discharged home with the amlodipine 5 mg p.o. daily, Flomax 0.4 mg p.o. daily. Patient was advised to follow up with the primary care physician in 1 week and also to follow up with the urologist Dr. Beck in 1 to 2 weeks for further evaluation and care of cholelithiasis. Operations or Procedures [place] [id number] Ph: [phone] DIAGNOSTIC IMAGING Diagnostic Imaging Report : [id number] Signed PATIENT: AD BARNES ACCT: [id number] UNIT: [id number] : 1975 LOC: ER ROOM / BED: / AGE / SEX: 49 / M ADM STATUS: REG ER SERVICE 0411 ORDERING PHYSICIAN: KATERINA FLORES MD PROCEDURE(s): ABPL - CT AB PEL WO CON-NO ORAL OR IV REASON: colitis ORDER NUMBER(s): [id number], ACCESSION NUMBER(s): [id number] Exam: CT CT AB PEL WO CON-NO ORAL OR IV History: colitis Comparison Study: None TECHNIQUE: Multidetector CT of the abdomen and pelvis was performed from lung bases to pubic symphysis. Imaging was performed without IV contrast. Axial, coronal and sagittal multiplanar reformats were obtained from the axial data set by the technologist. Radiation optimization: All CT scans at this facility use at least one of these dose optimization techniques: automated exposure control mA and/or kV adjustment per patient size (includes targeted exams where dose is matched to clinical indication) or iterative reconstruction. Radiation Dose Information: CT Dose: CTDI volume is 20.39 mGy. Dose-length product is 3.92 mGy*cm FINDINGS: Evaluation of solid organs is limited due to lack of intravenous contrast use. Imaged portions of the lung bases demonstrate patchy atelectasis left lung base. Diffuse hepatic steatosis with sparing along the gallbladder fossa. Gallbladder, spleen, pancreas, and adrenal glands appear unremarkable. 2 mm calculus in the mid left ureter with mild left hydronephrosis. No additional renal or ureteral calculi. No evidence of bowel obstruction or focal bowel wall thickening. Appendix appears normal. No free fluid, free air or adenopathy. No suspicious osseous lesion. IMPRESSION: 1. 1.2 mm calculus in the mid left ureter with mild left hydronephrosis. 2. Hepatic steatosis. ATED BY: ELISABET BETH MD DICTATED DATE/TIME: 02/25/25610 SIGNED BY: ELISABET BETH MD SIGNED DATE/TIME: 02/25/25610 CC: Condition at Discharge: Stable Final Diagnosis/Problems List # nephrolithiasis # Acute left ureterolithiasis Likely obstructive # Mild left hydronephrosis # microscopic hematuria # ruled out Gastroenteritis # Hypertensive crisis # Alcohol use disorder Discharge Disposition: Home Discharge Instruct/Medications Diet: Cardiac 2g Na,low cholest (2 gm sodium, low cholesterol) Activity: No Restrictions, As Tolerated Follow Up/Referral: Please follow up with the urologist Dr. Durán in 1-2 weeks for further Please follow up at the discharge clinic in 1 week evaluation and care of left renal stone Please follow up with the primary care physician in 1 week Medications: Amlodipine 5 mg p.o. daily Tamsulosin 0.4 mg p.o. daily Thiamine 100 mg p.o. daily Scheduled Amlodipine Besylate (Amlodipine Besylate), 1 TAB PO DAILY Tamsulosin Hcl (Flomax), 1 CAP PO DAILY Thiamine HCl (Thiamine Hydrochloride), 100 MG PO DAILY Discharge Statement: "Patient was advised to return to the ER or call 911 if any headaches, dizziness, shortness of breath, chest pain, abdominal pain, bleeding, fevers, or worsening of medical condition. Patient was counseled about treatment plan, medications, possible side effects, patientverbalized understanding. All questions were answered to the best of my ability. This discharge took greater then 30 minutes in planning, reviewing documentation, counseling the patient, and discussing with other team members." ASSESSMENT ASSESSMENT Assessment Date of Service: Feb 27, 2025 Billing Provider: RANJIT HONG Common Visit Codes: 11955-[id number] DISCH DAY >30min RANJIT HONG Feb 27, 2025 07:20 AMANUEL CORNELL MD Feb 28, 2025 09:17
[2025-02-27] MEDS ORDERED: THIA100T13 PO (07:22)
[2025-02-27] MEDS ORDERED: AMLO1TAB22 PO (07:22)
[2025-02-27] MEDS ORDERED: TAMS-35 PO (07:22)
[2025-02-27 07:37] VITALS: PULSE 76; RESP 17; O2SAT 96
[2025-02-27 08:16] VITALS: BP 140/99; PULSE 68; RESP 14; TEMP 97.7; O2SAT 95
== END 2025-02-27 11:06 | disposition home or self-care (01) | DRG 465 ==
LOC: ER 03:51 → OVERFLOW 08:53 → WEST WING 17:35
PROVIDERS: ADMIT Student in an Organized Health Care Education/Training Program; ATTEND Student in an Organized Health Care Education/Training Program
DX: N13.2 Hydronephrosis with renal and ureteral calculous obstruction (principal); I16.9 Hypertensive crisis, unspecified; F10.10 Alcohol abuse, uncomplicated; Y90.9 Presence of alcohol in blood, level not specified; I10 Essential (primary) hypertension; E66.9 Obesity, unspecified; Z82.49 Family history of ischemic heart disease and other diseases of the circulatory system; Z83.3 Family history of diabetes mellitus; Z68.33 Body mass index [BMI] 33.0-33.9, adult
CPT/HCPCS: 36415; 74176; 80048; 80053; 80076; 80307; 80320; 81001; 82607; 83036; 83690; 83735; 83880; 85025; 86803; 87340; 87426; 87804; 99291; 99292; G0378; J2405